=== PATIENT | female | born 1965 | race Caucasian/White ===

== ENCOUNTER 2020-06-15 17:47 | Emergency (ER) | payer OTHER ==
--- NOTE | 2020-06-15 18:30 | EDM.PDOC ---
ED HPI GENERAL MEDICAL PROBLEM - General Chief Complaint: Upper Extremity Injury/Pain Stated Complaint: BEE STING LEFT RING FINGER Time Seen by Provider: 06/15/20 18:25 Source of Information: Reports: Patient History Limitations: Reports: No Limitations - History of Present Illness INITIAL COMMENTS - FREE TEXT/NARRATIVE: Patient presents for evaluation of bee sting to the left ring finger. This occurred not too long before arrival here. She felt something on the back of her neck and reached back to sweep which she assumed was a flyer mosquito away and was stung on the finger. It began to swell and her rings had to be cut off because of tightness within the finger. She put some topical Benadryl on the finger but it has not improved. 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: Reports: - Past Surgical History Female Surgical History: Reports: Section, Oophorectomy Social & Family History - Tobacco Use Smoking Status *Q: Never Smoker - Caffeine Use Caffeine Use: Reports: Coffee - Recreational Drug Use Recreational Drug Use: No Review of Systems - Review of Systems Review Of Systems: See Below Constitutional: Reports: No Symptoms Respiratory: Reports: No Symptoms Cardiovascular: Reports: No Symptoms Musculoskeletal: Reports: Joint Pain (Left ring finger), Joint Swelling, Muscle Pain (Ring finger.) ED EXAM, GENERAL - Physical Exam Exam: See Below Exam Limited By: No Limitations General Appearance: Alert, No Apparent Distress Respiratory/Chest: No Respiratory Distress Cardiovascular: Regular Rate, Rhythm Extremities: Other (The left ring finger shows generalized edema especially along its proximal half. The finger is neurovascularly intact. She has slight limitation of flexion.) Course - Vital Signs Last Recorded V/S: Last Vital Signs Temp 36 C L 06/15/20 18:13 Pulse 80 06/15/20 18:13 Resp 16 07/23/20 18:13 BP 157/84 H 06/15/20 18:13 Pulse Ox 99 06/15/20 18:13 - Re-Assessments/Exams Free Text/Narrative Re-Assessment/Exam: 06/16/20 06:22 Recommend elevating the hand to the extent possible. Cold water immersion can help. Benadryl 25 mg 2 or 3 times a day regularly for the next couple of days along with ibuprofen 800 mg 3 times daily. Return to ER if feeling worse in any way. Departure - Departure Time of Disposition: 18:30 Disposition: Home, Self-Care 01 Clinical Impression: Bite or sting by insect - Discharge Information Instructions: Bee, Wasp, or Hornet Sting, Adult Referrals: PCP,None [Primary Care Provider] - Forms: ED Department Discharge Additional Instructions: Elevate hand is much as possible. Use ibuprofen 800 mg 3 times a day or Aleve 440 mg twice a day regularly over the next 3 days. Also use Benadryl 25 mg 2 or 3 times a day regularly for the same number of days. 1% hydrocortisone cream applied to painful/itchy areas on the finger twice a day will also be helpful. Return to ER if feeling worse in any way. Sepsis Event Note (ED) - Evaluation Sepsis Screening Result: No Definite Risk
== END 2020-06-15 18:41 | disposition home or self-care (01) ==
LOC: JP.ED 17:47
DX: T63.441A Toxic effect of venom of bees, accidental (unintentional), initial encounter (principal); Z88.1 Allergy status to other antibiotic agents; Z88.2 Allergy status to sulfonamides
CPT/HCPCS: 99282